=== PATIENT | male | born 1955 | race Caucasian/White ===

== ENCOUNTER 2023-10-11 13:26 | Emergency (ER) | payer MEDICARE, OTHER, SELFPAY ==
[2023-10-11] VITALS (7 sets, daily range): BP systolic 126–176; BP diastolic 67–95; PULSE 44–50; BMI 27.7
--- NOTE | 2023-10-11 14:15 | ED.GENMED ---
History of Present Illness
General
Chief Complaint: Dizziness
Source: patient and family (Daughter)
Exam Limitations: none
Time Seen by Provider: 10/11/23 13:48
Nursing documentation reviewed up to this point in time: agreed with
Travel History
Have you had any contact with someone who has COVID-19?: No
Do you have any symptoms of coronavirus? Fever > 100 degrees, chills, cough, shortness of breath, sore throat, loss of taste or smell, muscle aches, or headache?: No
History of Present Illness
History of Present Illness:
The patient is a 68-year-old man with a past medical history of recently diagnosed Alzheimer's dementia who was brought in by his daughter for 2 days of intermittent dizziness. Patient is a poor historian. He reports his dizziness is better. His
daughter reports that he stumbled earlier today while trying to walk. However, she reports he does have a shuffling gait at baseline. The patient denies current chest pain or shortness of breath. Patient denies headache and fever. He denies
vision changes. He reports he just feels tired but otherwise has no complaints at this time. His daughter reports that his heart rate is generally in the 50s to 60s so she was surprised that his heart rate was in the 40s. She reports he was
started on metoprolol this past August. Patient also complains of intermittent abdominal pain for several weeks, however, his daughter reports that his Aricept has been causing him stomach upset. He also reports black stool.
Past History
Past History
ED Past Medical History: HTN, Hypercholesterolemia and Other (SVT, Alzheimer's dementia)
ED Past Surgical History: Other
Social History
Tobacco: Non-smoker
Alcohol: None
Drug: None
Personal: Other
Living: with family
Employment: Retired
Family History
Family History: Other
Review of Systems
Review of Systems
Allergies reviewed?: Yes
Unable to obtain full review of systems at this time due to: dementia
Other source history: family
All Other Systems: ROS reviewed and negative except as documented in HPI and ROS
Constitutional: Reports fatigue
EENT: Reports no symptoms
Respiratory: Reports no symptoms
Cardiac: Reports no symptoms
ABD/GI: Reports abdominal pain and diarrhea
: Reports no symptoms
Musculoskeletal: Reports no symptoms
Skin: Reports no symptoms
Neurological: Reports dizzy
Endocrine: Reports no symptoms
Hematologic/Lymphatic: Reports no symptoms
Psychiatric: Reports no symptoms
Phy Exam
Physical Exam
Physical Exam:
Physical Exam
General: no apparent distress, not acutely ill
Neck: supple. no meningeal signs. normal psoterior pharynx
Heart: s1/s2 regular rate and rhythm, no murmur. equal radial pulses.
Lungs: no acute respiratory distress. clear bilaterally
Abdomen: normal bowel sounds. not tender. no CVAT
Neuro: alert and oriented. no focal neurological deficits. Normal [id number]. Extraocular muscles intact. 5 out of 5 strength in all extremities without drift. Visual torrez intact
Skin: no rash
Psychiatric: well kept. interactive and cooperative
Extremities: no edema. no calf tenderness. negative homans. good distal pulses
Course
Orders/Labs/Results
Orders:
Orders
10/11/23 13:32
Electrocardiogram (*1) Urgent
Reason for Study: Bradycardia / Tachycardia
EKG- Treatment ONCE
10/11/23 14:05
CMP [Comprehensive Metabolic Panel] Urgent
Complete Blood Count/With Diff Urgent
10/11/23 14:16
Orthostatic VS- Treatment ONCE
10/11/23 14:17
CT Head W/o Iv Contrast Urgent
Comment:
Reason For Exam: dizziness
10/11/23 14:19
Troponin I Urgent
10/11/23 15:08
0.9% Sodium Chloride 500 ml [Nss] 500 ml IV BOLUS
10/11/23 15:20
Urinalysis Reflex To Culture Urgent
Date Specimen was Collected: 10/11/23
Time Specimen was Collected: 15:16
10/11/23 15:35
CT Abd/pelvis W Iv Cont Urgent
Comment:
Reason For Exam: abdominal pain
Abnormal Lab Results
10/11/23
14:05
RBC 4.42 L 10^6/uL
(4.70-6.10)
MCH 32.4 H pg
(27.0-31.0)
Lymphocytes % 19.3 L %
(20.5-51.1)
Carbon Dioxide 32 H mmol/L
(22-30)
BUN 21 H mg/dl
(9-20)
Total Bilirubin 1.9 H mg/dl
(0.2-1.3)
ALT 71 H U/L
(0-50)
10/11/23 14:05
10/11/23 14:05
Vital Signs
Initial and Last Documented VS:
Initial Vital Signs
Temp Pulse Resp BP Pulse Ox
98.7 F 45 18 134/74 98
10/11/23 13:32 10/11/23 13:32 10/11/23 13:32 10/11/23 13:32 10/11/23 13:32
Last Documented Vital Signs
Temp Pulse Resp BP Pulse Ox
98.7 F 48 13 176/95 100
10/11/23 13:32 10/11/23 17:45 10/11/23 17:45 10/11/23 17:13 10/11/23 17:30
MDM/Problems Addressed
Differential Diagnosis Includes:
Symptomatic bradycardia, dehydration, UTI, CVA
MDM/Problems Addressed:
Patient presents with acute generalized weakness and dizziness
Chronic conditions affecting care: HTN
Acute Exacerbation and/or Progression of Chronic Illness: HTN
*Radiology
Radiology exam reviewed: radiology read reviewed
*Pulse Oximetry
Patient hypoxic: no
*EKG
Interpreted by ED Provider?: Yes
Interpretation: abnormal
Comparison EKG: no comparison EKG present
Rate: normal
Rhythm: sinus
[place]: left axis deviation
Interval: normal interval
QRS Pattern: normal QRS
Ischemia: non-specific ST changes
*Lead Generation Specialist Interpretation
Rate: bradycardiac
Interpretation: normal
Rhythm: sinus
*Critical Care Note
Total Time (30-74mins, 75-104mins- exclusive of procedures): Not Applicable
Data Reviewed
Source: patient and family (Daughter)
Patient Management
Discussion with other providers: Other (Spoke to Dr. Acosta from cardiology who recommended we decrease patient's dose of metoprolol from 25 mg daily to 12.5 milligrams daily)
Escalation/DeEscalation of care consider admission/obs:
Patient walking around steadily. He has a normal neurological exam so there is no sign of stroke. There is no sign of infection. Patient's dizziness is likely due to his bradycardia and patient reports he feels better. Patient also encouraged to
follow-up with his column precaster as soon as possible and I did speak to Dr. Maricruz Rene, who was the on-call column precaster at patient's cardiology group at [facility] to tell him what was going on as well. He agreed with the plan to decrease the
metoprolol and have close follow-up with cardiology
ED Attending Note
-
Portions of this chart may have been created with voice recognition software.� Occasional wrong word or��sound alike� substitutions may have occurred due to the inherent limitations of voice recognition software.
Discharge Plan
Departure
Patient Disposition: Home (Routine Discharge)
Date of Disposition: 10/11/23
Time of Disposition: 18:14
Patient with high blood pressure during this ER visit?: Yes
Condition: Good
Covid-19: Not Applicable
Discharge Problem:
Symptomatic sinus bradycardia, Dizziness
Instructions: Bradycardia, Dizziness
Prescriptions:
No Action
multivitamin Tablet
1 tab PO DAILY
atorvastatin 40 mg Tablet
40 mg PO DAILY
donepezil 10 mg Tablet
10 mg PO DAILY
cyanocobalamin (vitamin B-12) [Vitamin B-12] 1,000 mcg Tablet
1,000 mcg PO DAILY
amlodipine 5 mg tablet
5 mg PO DAILY
tamsulosin 0.4 mg Capsule
0.4 mg PO DAILY
metoprolol succinate 25 mg Tablet Extended Release 24 Hr
25 mg PO DAILY
sertraline 50 mg tablet
100 mg PO DAILY
bupropion HCl 150 mg tablet extended release 24 hr
150 mg PO DAILY
trospium 20 mg tablet
20 mg PO HS
Referrals:
Laurie Evans DO [Family Provider] -
Activity Restrictions/Additional Instructions:
Please follow-up with your column precaster within 1 week. Please do not take any metoprolol tomorrow. After that, please take 12.5 mg of metoprolol (which is half your normal dose)
Interventions
Interventions:
*Risk Screen - Suicide Last Done: 10/11/23 13:32
*General Assessment Last Done: 10/11/23 13:32
*Neglect/Abuse Screening Last Done: 10/11/23 14:37
*ED COVID-19 Vaccine History Last Done: 10/11/23 13:32
*Nursing Disposition Last Done: 10/11/23 18:21
ED- Neurological Assessment Last Done: 10/11/23 14:37
ED- Cardiac Assessment Last Done: 10/11/23 14:37
Discharge Date and Time
Discharge Date/Time: 10/11/23 18:22
[2023-10-11 14:31] LABS: % Basophils 0.8 % (0-2); % Eosinophils 1.6 % (0-6); % Immature Granulocytes 0.2 % (0-0.5); % Lymphocytes 19.3 % (20.5-51.1); % Neutrophils 71.1 % (42.2-75.2); Absolute Basophils 0.1 10^3/uL (0-0.2); Absolute Eosinophils 0.1 10^3/uL (0-0.7); Absolute Lymphocytes 1.2 10^3/uL (1.2-3.4); Absolute Monocytes 0.4 10^3/uL (0.1-0.6); Absolute Neutrophils 4.5 10^3/uL (1.4-6.5); Hematocrit 39.5 % (39.0-52.0); Hemoglobin 14.3 g/dL (13.0-18.0); Mean Corp Hgb Conc. 36.2 g/dL (33.0-37.0); Mean Corpuscular Hgb 32.4 pg (27.0-31.0); Mean Corpuscular Volume 89.4 fL (80.0-94.0); Mean Platelet Volume 10.3 fL (7.4-10.4); Nucleated Red Blood Cells % 0 % (-); Platelet Count 172 10^3/uL (130-400); Red Blood Cell Count 4.42 10^6/uL (4.70-6.10); Red Cell Dist. Width 12.3 % (11.5-14.5); White Blood Cell Count 6.3 10^3/uL (4.8-10.8)
[2023-10-11 14:46] LABS: ALT (SGPT) 71 U/L (0-50); AST (SGOT) 36 U/L (17-59); Albumin 4.1 g/dl (3.5-5.0); Alkaline Phosphatase 62 U/L (38-126); Blood Urea Nitrogen 21 mg/dl (9-20); Calcium 9.1 mg/dl (8.4-10.2); Carbon Dioxide 32 mmol/L (22-30); Chloride 100 mmol/L (98-107); Glucose 99 mg/dl (70-99); Sodium 138 mmol/L (135-145); Total Bilirubin 1.9 mg/dl (0.2-1.3); Total Protein 6.6 g/dl (6.3-8.2); eGFR > 60.00
[2023-10-11 14:54] LABS: Troponin I < 0.012 ng/ml
[2023-10-11 15:32] LABS: Urine Albumin Negative (Neg - Trace); Urine Bilirubin Negative (Negative); Urine Character Clear (Clear); Urine Color Yellow; Urine Glucose Negative (Negative); Urine Ketone Negative (Negative); Urine Leukocyte Negative (Negative); Urine Nitrite Negative (Negative); Urine Occult Blood Negative (Negative); Urine Specific Gravity 1.015 (<1.030); Urine Urobilinogen Negative (Neg - 1+); Urine pH 6.5 (5.0-9.0)
[2023-10-11] MEDS: NSS 500 IV (16:03)
== END 2023-10-11 18:22 | disposition home or self-care (01) ==
LOC: EMR 13:26
PROVIDERS: EMERGENCY PHYSICIAN Emergency Medicine; FAMILY PHYSICIAN Family Medicine
DX: R00.1 Bradycardia, unspecified (principal); R42 Dizziness and giddiness; G30.9 Alzheimer's disease, unspecified; F02.80 Dementia in other diseases classified elsewhere, unspecified severity, without behavioral disturbance, psychotic disturbance, mood disturbance, and anxiety; E78.00 Pure hypercholesterolemia, unspecified; I10 Essential (primary) hypertension
CPT/HCPCS: 99284; 96360; 70450; 74177; 80053; 81003; 84484; 85025; 93005; Q9967

== ENCOUNTER 2024-03-16 22:13 | Emergency (ER) | payer MEDICARE, OTHER, SELFPAY ==
[2024-03-16 22:15] VITALS: BP 176/92
[2024-03-16 23:13] LABS: % Basophils 0.3 % (0-2); % Eosinophils 0.3 % (0-6); % Immature Granulocytes 0.2 % (0-0.5); % Lymphocytes 5.9 % (20.5-51.1); % Monocytes 4.1 % (1.7-9.3); % Neutrophils 89.2 % (42.2-75.2); Absolute Lymphocytes 0.8 10^3/uL (1.2-3.4); Absolute Monocytes 0.5 10^3/uL (0.1-0.6); Absolute Neutrophils 11.4 10^3/uL (1.4-6.5); Hematocrit 38.4 % (39.0-52.0); Hemoglobin 14.3 g/dL (13.0-18.0); Mean Corp Hgb Conc. 37.2 g/dL (33.0-37.0); Mean Corpuscular Hgb 32.1 pg (27.0-31.0); Mean Corpuscular Volume 86.3 fL (80.0-94.0); Mean Platelet Volume 9.7 fL (7.4-10.4); Nucleated Red Blood Cells % 0 % (-); Platelet Count 210 10^3/uL (130-400); Red Blood Cell Count 4.45 10^6/uL (4.70-6.10); Red Cell Dist. Width 12.2 % (11.5-14.5); White Blood Cell Count 12.8 10^3/uL (4.8-10.8)
[2024-03-16 23:32] LABS: ALT (SGPT) 34 U/L (0-50); AST (SGOT) 32 U/L (17-59); Albumin 4.6 g/dl (3.5-5.0); Alkaline Phosphatase 76 U/L (38-126); Blood Urea Nitrogen 31 mg/dl (9-20); Calcium 9.6 mg/dl (8.4-10.2); Carbon Dioxide 26 mmol/L (22-30); Chloride 105 mmol/L (98-107); Glucose 142 mg/dl (70-99); Lipase 116 U/L (23-300); Potassium 3.7 mmol/L (3.5-5.1); Sodium 139 mmol/L (135-145); Total Bilirubin 1.2 mg/dl (0.2-1.3); Total Protein 7.2 g/dl (6.3-8.2); eGFR > 60.00
--- NOTE | 2024-03-17 00:15 | ED.GENMED ---
History of Present Illness
General
Chief Complaint: Abdominal Symptoms
Source: patient
Exam Limitations: none
Time Seen by Provider: 03/16/24 22:36
Nursing documentation reviewed up to this point in time: agreed with
History of Present Illness
History of Present Illness:
Patient with history of 'overnight incontinence', status post 'Uro-Lift' in [place] 2 years ago, presents to ED secondary to bladder fullness with vomiting episode this afternoon. Of note, this morning, daughter did note foul-smelling urine, and
is concerned that he may have a urinary tract infection, which she has had before. In addition prior to UroLift, patient did have an episode of urinary retention, requiring Parra catheter placement. Denies fever or chills. Denies recent change in
medications or diet.
Past History
Past History
ED Past Medical History: HTN, Hypercholesterolemia and Other (SVT, Alzheimer's dementia)
ED Past Surgical History: Other
Social History
Tobacco: Non-smoker
Alcohol: None
Drug: None
Personal: Other
Living: with family
Employment: Retired
Family History
Family History: Other
Review of Systems
Review of Systems
Allergies reviewed?: Yes
All Other Systems: ROS reviewed and negative except as documented in HPI and ROS
Constitutional: Reports no symptoms; Denies fever or chills
ABD/GI: Reports abdominal pain, nausea and vomiting
: Reports incontinence and difficulty voiding
Musculoskeletal: Reports no symptoms
Skin: Reports no symptoms
Neurological: Reports no symptoms
Phy Exam
Physical Exam
Physical Exam:
Physical Exam
General: mild distress, not acutely ill. afebrile
Head: nc/at. eomi
Neck: supple. normal range of motion.
Abdomen: normal bowel sounds. not tender.
Neuro: alert and oriented. no focal neurological deficits
Skin: no rash
Psychiatric: well kept. interactive and cooperative
Extremities: no edema. no calf tenderness.
Course
Orders/Labs/Results
Orders:
Orders
03/16/24 22:18
EKG [Electrocardiogram (*1)] Urgent
Reason for Study: Abdominal Pain
EKG- Treatment ONCE
03/16/24 23:06
Complete Blood Count/With Diff Urgent
Comprehensive Metabolic Panel Urgent
Lipase Urgent
03/16/24 23:36
Bladder Scan- Treatment ONCE
Parra Placement- Treatment ONCE
Reason for insertion: Acute Retention
03/16/24 23:47
Urinalysis Reflex To Culture Urgent
Date Specimen was Collected: 03/16/24
Time Specimen was Collected: 22:56
Urine Microscopic Reflex Cult Urgent
Abnormal Lab Results
03/16/24 03/16/24
23:06 23:47
WBC 12.8 H 10^3/uL
(4.8-10.8)
RBC 4.45 L 10^6/uL
(4.70-6.10)
Hct 38.4 L %
(39.0-52.0)
MCH 32.1 H pg
(27.0-31.0)
MCHC 37.2 H g/dL
(33.0-37.0)
Absolute Neuts (auto) 11.4 H 10^3/uL
(1.4-6.5)
Absolute Lymphs (auto) 0.8 L 10^3/uL
(1.2-3.4)
Neutrophils % 89.2 H %
(42.2-75.2)
Lymphocytes % 5.9 L %
(20.5-51.1)
BUN 31 H mg/dl
(9-20)
Glucose 142 H mg/dl
(70-99)
Ur Occult Blood Reflex 3+ A
(Negative)
Urine RBC >100 A /HPF
(0-2)
Urine Bacteria (Reflex) Few A
(Negative)
03/16/24 23:06
03/16/24 23:06
Vital Signs
Initial and Last Documented VS:
Initial Vital Signs
Temp Pulse Resp BP Pulse Ox
99.2 F 66 14 176/92 96
03/16/24 22:15 03/16/24 22:15 03/16/24 22:15 03/16/24 22:15 03/16/24 22:15
Last Documented Vital Signs
Temp Pulse Resp BP Pulse Ox
99.2 F 70 15 176/92 94
03/16/24 22:15 03/17/24 00:45 03/17/24 00:45 03/16/24 22:15 03/17/24 00:45
MDM/Problems Addressed
MDM/Problems Addressed:
Bladder scan reveals greater than 800 mL of urine. Parra catheter inserted with significant improvement in symptoms. Urinalysis without leukoesterase nor nitrites. Mild leukocytosis, likely reactive.
Patient will be discharged home in stable condition, to the care of of his daughter, with Parra catheter in place. Patient will follow-up with the urologist as an outpatient next week.
*Critical Care Note
Total Time (30-74mins, 75-104mins- exclusive of procedures): Not Applicable
ED Attending Note
-
Portions of this chart may have been created with voice recognition software.� Occasional wrong word or��sound alike� substitutions may have occurred due to the inherent limitations of voice recognition software.
Discharge Plan
Departure
Patient Disposition: Home (Routine Discharge)
Date of Disposition: 03/17/24
Time of Disposition: 00:42
Patient with high blood pressure during this ER visit?: Yes
Discharge Problem:
Acute urinary retention
Instructions: How to Care for Your Parra Catheter, Male, Urinary retention - Discharge instructions
Prescriptions:
No Action
multivitamin Tablet
1 tab PO DAILY
atorvastatin 40 mg Tablet
40 mg PO DAILY
donepezil 10 mg Tablet
10 mg PO DAILY
cyanocobalamin (vitamin B-12) [Vitamin B-12] 1,000 mcg Tablet
1,000 mcg PO DAILY
amlodipine 5 mg tablet
5 mg PO DAILY
tamsulosin 0.4 mg Capsule
0.4 mg PO DAILY
metoprolol succinate 25 mg Tablet Extended Release 24 Hr
25 mg PO DAILY
sertraline 50 mg tablet
100 mg PO DAILY
bupropion HCl 150 mg tablet extended release 24 hr
150 mg PO DAILY
trospium 20 mg tablet
20 mg PO HS
Referrals:
Laurie Evans DO [Family Provider] -
Activity Restrictions/Additional Instructions:
As discussed, please follow-up with your urologist for further evaluation and treatment.
Interventions
Interventions:
*Risk Screen - Suicide Last Done: 03/16/24 22:15
*General Assessment Last Done: 03/16/24 22:15
*Neglect/Abuse Screening Last Done: 03/16/24 22:15
ED- Fall Risk Assessment Last Done: 03/17/24 01:00
*ED COVID-19 Vaccine History Last Done: 03/16/24 23:17
*Nursing Disposition Last Done: 03/17/24 01:00
GE-[id number]-[id number] Assessment Last Done: 03/16/24 23:17
Discharge Date and Time
Discharge Date/Time: 03/17/24 01:01
Print Language: PARAGUAYAN
[2024-03-17 00:17] LABS: Urine Albumin Negative (Neg - Trace); Urine Bilirubin Negative (Negative); Urine Character Clear (Clear); Urine Color Yellow; Urine Glucose Negative (Negative); Urine Ketone Negative (Negative); Urine Leukocyte Negative (Negative); Urine Nitrite Negative (Negative); Urine Occult Blood 3+ (Negative); Urine Urobilinogen Negative (Neg - 1+)
[2024-03-17 00:36] LABS: Urine Red Blood Cell >100 /HPF (0-2)
[2024-03-17 00:37] LABS: Urine Bacteria Few (Negative)
== END 2024-03-17 01:01 | disposition home or self-care (01) ==
LOC: EMR 22:13
PROVIDERS: EMERGENCY PHYSICIAN Emergency Medicine; FAMILY PHYSICIAN Family Medicine
DX: R33.9 Retention of urine, unspecified (principal); I10 Essential (primary) hypertension; E78.00 Pure hypercholesterolemia, unspecified; F02.80 Dementia in other diseases classified elsewhere, unspecified severity, without behavioral disturbance, psychotic disturbance, mood disturbance, and anxiety; G30.9 Alzheimer's disease, unspecified; I47.10 Supraventricular tachycardia, unspecified
CPT/HCPCS: 99283; 51702; 80053; 81003; 81015; 83690; 85025; 93005

== ENCOUNTER 2024-05-03 18:00 | Emergency (ER) | payer MEDICARE, OTHER, SELFPAY ==
[2024-05-03 18:02] VITALS: BP 149/76
--- NOTE | 2024-05-03 18:20 | ED.GENMED ---
History of Present Illness
General
Chief Complaint: Urinary Symptoms
Source: patient and family (daughter)
Exam Limitations: dementia (Slight)
Time Seen by Provider: 05/03/24 18:06
History of Present Illness
History of Present Illness:
This is a 68 year old male that is brought in by his daughter with c/o abd discomfort. Daughter states that the last time he did this he had urinary retention. States that they were here about 2 months and needed a catheter placed. States that he
had a UroLift as he had BPH. States that things have been better. States that he is normally incont at night and his bed is soaked. States that the past couple of nights his bed has been dry. states that he started to c/o abd pain and then he
vomited today. States that he has a slight headache and is occasionally dizzy. Denies any fever, chills, chest pain, SOB, diarrhea, urinary burning.
Past History
Past History
ED Past Medical History: Arrthythmia (SVT), HTN, Hypercholesterolemia, Psychiatric (Anxiety, Depression) and Other ( Alzheimer's dementia, Aortic dilatation)
ED Past Surgical History: Appendectomy, Orthopedic (ACL repair, Right total hip replacement) and Other
Social History
Tobacco: Non-smoker
Alcohol: None
Drug: None
Personal:
Living: with family (daughter's)
Employment: Retired
Family History
Family History: Other
Review of Systems
Review of Systems
Unable to obtain full review of systems at this time due to: dementia
Other source history: family
All Other Systems: ROS reviewed and negative except as documented in HPI and ROS
Constitutional: Reports no symptoms; Denies fever or chills
EENT: Reports no symptoms
Respiratory: Reports no symptoms; Denies cough or trouble breathing
Cardiac: Reports no symptoms; Denies chest pain
ABD/GI: Reports abdominal pain, nausea and vomiting; Denies diarrhea
: Reports other (Decreased output); Denies dysuria
Musculoskeletal: Reports no symptoms
Skin: Reports no symptoms
Neurological: Reports dizzy (occasionally) and headache (Slight)
Psychiatric: Reports no symptoms
Phy Exam
General Physical Exam
General Presentation: no apparent distress
General age: appears stated age
General Skin: warm and dry
General Habitus: elderly
General Mental: usual mental status
General Hydration: dry mucous membranes
ENT Exam
ENT Exam: TM's normal, pharynx normal and neck supple
Eye Exam
Eye Exam: EOMI
Cardiovascular Exam
Cardiovascular Exam: normal peripheral pulses and bradycardia
Pulmonary Exam
Pulmonary Exam: lungs clear, no respiratory distress, no rales, chest non tender, no crackles, no rhonchi, no wheezing and no cough
Gastrointestinal Exam
Gastrointestinal Exam: normal bowel sounds, soft, no organomegaly, no pulsatile mass, non distended and tender (Lower abd tenderness with palpation)
Musculoskeletal Exam
Musculoskeletal Exam: full ROM and edema (Very slight lower leg swelling)
Skin Exam
Skin Exam: normal color, warm/dry, no rash and no petechia
Psychiatric Exam
Psychiatric Exam: normal mood/affect
Course
Orders/Labs/Results
Orders:
Orders
05/03/24 18:18
Bladder Scan- Treatment ONCE
0.9% Sodium Chloride 1000 ml [Nss] 1,000 ml IV BOLUS
05/03/24 18:24
Ondansetron Injectable [Zofran] 4 mg IV NOW STA
05/03/24 18:35
Complete Blood Count/With Diff Urgent
Comprehensive Metabolic Panel Urgent
05/03/24 18:49
CT Abd/pelvis W Iv Cont Urgent
Comment:
Reason For Exam: Lower abd pain
05/03/24 19:57
Urinalysis Reflex To Culture Urgent
Date Specimen was Collected: 05/03/24
Time Specimen was Collected: 18:51
Abnormal Lab Results
05/03/24
18:35
RBC 4.08 L 10^6/uL
(4.70-6.10)
Hct 36.1 L %
(39.0-52.0)
MCH 32.1 H pg
(27.0-31.0)
Absolute Monos (auto) 0.7 H 10^3/uL
(0.1-0.6)
Monocytes % 9.8 H %
(1.7-9.3)
BUN 26 H mg/dl
(9-20)
05/03/24 18:35
05/03/24 18:35
Vital Signs
Initial and Last Documented VS:
Initial Vital Signs
Temp Pulse Resp BP Pulse Ox
97.9 F 51 16 149/76 96
05/03/24 18:02 05/03/24 18:02 05/03/24 18:02 05/03/24 18:02 05/03/24 18:02
Last Documented Vital Signs
Temp Pulse Resp BP Pulse Ox
97.9 F 51 16 149/76 96
05/03/24 18:02 05/03/24 18:02 05/03/24 18:02 05/03/24 18:02 05/03/24 18:02
MDM/Problems Addressed
Differential Diagnosis Includes:
Urinary tract infection, Urinary retention. Diverticulitis,
MDM/Problems Addressed:
This is a 68 year old male that comes in with his daughter with c/o abd pain. Daughter states that this happened before he had urinary retention.
will check labs, Bladder scan and if needed a catheter will be placed. will also give IV fluids. If bladder is empty will get CT scan.
Back into see patient and daughter. Explained that his blood work shows dehydration. His urine is negative for infection and his CT shows that he has Cystitis. Ther are other calcifications noted. Please increased patient water to 8-8oz glasses
daily. Try and stay away form Caffeine as this is irritating to the bladder lining. Follow up with his Urologist. Return with any concerns .
Chronic conditions affecting care:
Alzheimer. history or urinary retention.
Acute Exacerbation and/or Progression of Chronic Illness:
Urinary retention
*Radiology
Radiology exam reviewed: radiology read reviewed (CT-Moderate calcification in the region of the aortic valve. Please correlate with any clinical signs or symptoms that suggest clinically significant aortic stenosis. Diffuse thickening of the
bladder wall with stranding of the perivesical fat, findings suggestive of Cystitis. Enlarged prostate ), all reviewed NAD by ED Provider (CT cont- prostate gland extending into the base of the bladder. The spleen is enlarged with
craniocaudaldimension of 14.7cm, top-normal considered 13cm. No focal abnormality of the spleen. status post appendectomy. No evidence for bowel obstruction or free intraperitoneal air. Colonic diverticula) and other (CT cont- with no CT evidence of
diverticulitis. Bony degenerative changes as described. )
*Pulse Oximetry
Patient hypoxic: no
*EKG
Interpreted by ED Provider?: NA
Rate: EKG- N/A
*Healthcare Technician Interpretation
Rate: Healthcare Technician- N/A
*Critical Care Note
Total Time (30-74mins, 75-104mins- exclusive of procedures): Not Applicable
ED Attending Note
-
Portions of this chart may have been created with voice recognition software.� Occasional wrong word or��sound alike� substitutions may have occurred due to the inherent limitations of voice recognition software.
Discharge Plan
Departure
Patient Disposition: Home (Routine Discharge)
Date of Disposition: 05/03/24
Time of Disposition: 22:23
Patient with high blood pressure during this ER visit?: Yes
Condition: Good
Covid-19: Not Applicable
Discharge Problem:
Cystitis
Instructions: Bladder Pain Syndrome (Interstitial Cystitis) (DC), BLOOD PRESSURE
Prescriptions:
No Action
multivitamin Tablet
1 tab PO DAILY
atorvastatin 40 mg Tablet
40 mg PO DAILY
donepezil 10 mg Tablet
10 mg PO DAILY
cyanocobalamin (vitamin B-12) [Vitamin B-12] 1,000 mcg Tablet
1,000 mcg PO DAILY
amlodipine 5 mg tablet
5 mg PO DAILY
tamsulosin 0.4 mg Capsule
0.4 mg PO DAILY
metoprolol succinate 25 mg Tablet Extended Release 24 Hr
25 mg PO DAILY
sertraline 50 mg tablet
100 mg PO DAILY
bupropion HCl 150 mg tablet extended release 24 hr
150 mg PO DAILY
trospium 20 mg tablet
20 mg PO HS
Referrals:
Laurie Evans DO [Family Provider] -
Activity Restrictions/Additional Instructions:
As discussed, your blood work shows that you are dehydrated. Please increase your water intake to 8-8oz glasses daily. Your CT shows that you have Cystitis as there is thickening of the bladder wall. Please try and stay away from Caffeine as this
is irritating to the bladder lining. Follow up with your Urologist for further evaluation. Tylenol or Ibuprofen as needed for pain. IF YOU HAVE ANY OTHER CONCERNS PLEASE RETURN TO THE EMERGENCY ROOM.
Interventions
Interventions:
*Risk Screen - Suicide Last Done: 05/03/24 18:54
*General Assessment Last Done: 05/03/24 18:54
*Neglect/Abuse Screening Last Done: 05/03/24 18:54
ED- Fall Risk Assessment Last Done: 05/03/24 18:54
ED-Male Genitourinary Assessment Last Done: 05/03/24 18:53
Discharge Date and Time
Print Language: DANISH
[2024-05-03 18:32] VITALS: BMI 28.7
[2024-05-03] MEDS: NSS 1000 IV (18:34)
[2024-05-03 18:47] LABS: % Basophils 0.9 % (0-2); % Eosinophils 1.3 % (0-6); % Immature Granulocytes 0.4 % (0-0.5); % Lymphocytes 21.2 % (20.5-51.1); % Monocytes 9.8 % (1.7-9.3); % Neutrophils 66.4 % (42.2-75.2); Absolute Basophils 0.1 10^3/uL (0-0.2); Absolute Eosinophils 0.1 10^3/uL (0-0.7); Absolute Lymphocytes 1.4 10^3/uL (1.2-3.4); Absolute Monocytes 0.7 10^3/uL (0.1-0.6); Absolute Neutrophils 4.5 10^3/uL (1.4-6.5); Hematocrit 36.1 % (39.0-52.0); Hemoglobin 13.1 g/dL (13.0-18.0); Mean Corp Hgb Conc. 36.3 g/dL (33.0-37.0); Mean Corpuscular Hgb 32.1 pg (27.0-31.0); Mean Corpuscular Volume 88.5 fL (80.0-94.0); Mean Platelet Volume 9.9 fL (7.4-10.4); Nucleated Red Blood Cells % 0 % (-); Platelet Count 166 10^3/uL (130-400); Red Blood Cell Count 4.08 10^6/uL (4.70-6.10); Red Cell Dist. Width 12.2 % (11.5-14.5); White Blood Cell Count 6.7 10^3/uL (4.8-10.8)
[2024-05-03 19:00] LABS: ALT (SGPT) 34 U/L (0-50); AST (SGOT) 25 U/L (17-59); Albumin 4.2 g/dl (3.5-5.0); Alkaline Phosphatase 57 U/L (38-126); Blood Urea Nitrogen 26 mg/dl (9-20); Calcium 9.1 mg/dl (8.4-10.2); Carbon Dioxide 27 mmol/L (22-30); Chloride 102 mmol/L (98-107); Estimated Creatinine Clearance 65 ml/min; Glucose 87 mg/dl (70-99); Potassium 3.9 mmol/L (3.5-5.1); Sodium 141 mmol/L (135-145); Total Bilirubin 1.2 mg/dl (0.2-1.3); Total Protein 6.5 g/dl (6.3-8.2); eGFR > 60.00
[2024-05-03 20:23] LABS: Urine Albumin Negative (Neg - Trace); Urine Bilirubin Negative (Negative); Urine Character Clear (Clear); Urine Color Yellow; Urine Glucose Negative (Negative); Urine Ketone Negative (Negative); Urine Leukocyte Negative (Negative); Urine Nitrite Negative (Negative); Urine Occult Blood Negative (Negative); Urine Urobilinogen Negative (Neg - 1+)
== END 2024-05-03 22:34 | disposition home or self-care (01) ==
LOC: EMR 18:00
PROVIDERS: Clinical Nurse Specialist Family Health; EMERGENCY PHYSICIAN Emergency Medicine; FAMILY PHYSICIAN Family Medicine
DX: N30.90 Cystitis, unspecified without hematuria (principal); E78.00 Pure hypercholesterolemia, unspecified; F02.83 Dementia in other diseases classified elsewhere, unspecified severity, with mood disturbance; F02.84 Dementia in other diseases classified elsewhere, unspecified severity, with anxiety; G30.9 Alzheimer's disease, unspecified; I10 Essential (primary) hypertension; N40.1 Benign prostatic hyperplasia with lower urinary tract symptoms; Z90.49 Acquired absence of other specified parts of digestive tract; Z96.641 Presence of right artificial hip joint
CPT/HCPCS: 99284; 96360; 74177; 80053; 81003; 85025; Q9967